=== PATIENT | female | born 1965 | race Caucasian/White ===

== ENCOUNTER 2018-05-16 14:38 | Emergency (ER) | payer OTHER ==
[~2018-05-16] VITALS: Ht 162.6 cm; Wt 79.4 kg
[~2018-05-16 14:38] MED LIST: BACLOFEN10 M1 PO; IBUPROFEN600 M1 PO; ULTRAM50 M1 PO
[2018-05-16 15:28] LABS: ABSOLUTE BASOPHIL COUNT 0 /CUMM (0.0-0.2); ABSOLUTE EOSINOPHIL COUNT 0.1 /CUMM (0.0-0.7); ABSOLUTE GRANULOCYTE CT 2.5 /CUMM (1.4-6.5); ABSOLUTE LYMPH COUNT 1.6 /CUMM (1.2-3.4); ABSOLUTE MONOCYTE COUNT 0.7 /CUMM (0.10-0.60); BASOPHIL % 0.4 % (0.0-2.0); EOSINOPHIL % 2.6 % (0-5); GRANULOCYTE % 50.2 % (42.2-75.2); HEMATOCRIT 40.3 % (37-47); MEAN CORPUSCULAR HGB 30.1 PG (27.0-31.0); MEAN CORPUSCULAR HGB CONC 34.2 G/DL (33.0-37.0); MEAN PLATELET VOLUME 8.2 FL (7.4-10.4); PLATELET COUNT 277 /CUMM (130-400); RBC DISTRIBUTION WIDTH 12.9 % (11.5-14.5); RED BLOOD CELL CT 4.59 /CUMM (4.20-5.40)
--- NOTE | 2018-05-16 16:03 | ED AMS/SEIZURE/WEAK/DIZZY ---
History of Present Illness General Chief Complaint: General Adult Stated Complaint: LIGHTHEADED/WEAKNESS Source: patient Exam Limitations: no limitations Vital Signs & Intake/Output Vital Signs & Intake/Output Vital Signs Date Time Temp Pulse Resp B/P B/P Pulse O2 O2 Flow FiO2 Mean Ox Delivery Rate 05/16 1747 98.1 60 16 164/76 96 Room Air 05/16 1647 98.6 57 20 171/72 98 Room Air 05/16 1640 Room Air 05/16 1453 99.0 62 18 146/86 98 Room Air Allergies Coded Allergies: amoxicillin (Intermediate, RASH 02/24/18) doxycycline (Intermediate, RASH 02/24/18) Reconcile Medications Baclofen 10 MG TABLET 1-2 TAB PO TID PRN muscle strain Ibuprofen 600 MG TABLET 1 TAB PO Q6P PRN pain with food Meclizine HCl 25 MG TABLET 1 TAB PO TIDPRN PRN DIZZY Tramadol HCl (Ultram) 50 MG TABLET 1-2 TAB PO Q6P PRN severe pain Triage Note: 53F REPORTS WEAKNESS AND DIZZINESS SINCE THIS MORNING. +LIGHTHEADEDNESS AND NAUSEA WITHOUT VOMITING OR NEURO DEFICITS. AMBULATES WITH STRONG STEADY GAIT, GENERALLY WELL APPEARING. DENIES CP/SOB/PALP. STATES SHE WAS GOING TO GO TO HER DR BUT DIDN'T HAVE A RIDE. REQUESTING COPIES OF BLOODWORK TO GO HOME WITH Triage Nurses Notes Reviewed? yes Onset: Abrupt Duration: week(s): (1-2 MONTHS), changing over time, continues in ED, intermittent Timing: recent history Injury Environment: home Severity: mild, moderate No Modifying Factors: none LMP (ages 10-50): post menopausal, unknown : No Patient currently breastfeeds: No HPI: 53-year-old female history of hypertension presents for evaluation of episodes of dizziness lightheadedness and weakness. Patient reports she has been noticing the symptoms intermittently over the past 1-2 months. She states that symptoms seem to occur every other day last for several hours then resolve. She reports that she will get dizzy with movement and that her symptoms resolve at rest. She reports associated nausea but no vomiting. She also has had some watery diarrhea without blood INTERMITTENTLY. No abdominal pain chest pain shortness of breath or palpitations. She also reports some generalized weakness without focal weakness. No slurred speech changes in vision head injury. She's not taking any medicine for her symptoms. She's not seen her doctor for this. She does have an appointment on Saturday with her primary. NO recent surgery lower extremity edema or hemoptysis. No cough or fever. NO Rashes. No urinary symptoms. (Anderson Byrd) Past History Travel History Traveled to [place] past 21 day No Medical History Any Pertinent Medical History? see below for history Neurological: NERVE PROBLEMS EENT: NONE Cardiovascular: hypertension Respiratory: NONE Gastrointestinal: NONE Hepatic: NONE Renal: NONE Musculoskeletal: NONE Psychiatric: NONE Endocrine: NONE Blood Disorders: NONE Surgical History Surgical History: non-contributory Psychosocial History What is your primary language Afghan Tobacco Use: Never used ETOH Use: denies use Illicit Drug Use: denies illicit drug use Family History Hx Contributory? No (Anderson Byrd) Review of Systems Review of Systems Constitutional: Reports: weakness. EENTM: Reports: no symptoms. Respiratory: Reports: no symptoms. Cardiovascular: Reports: no symptoms. GI: Reports: see HPI, diarrhea, nausea. Genitourinary: Reports: no symptoms. Musculoskeletal: Reports: no symptoms. Skin: Reports: no symptoms. Neurological/Psychological: Reports: see HPI (dizzy lightheaded). Hematologic/Endocrine: Reports: no symptoms. Immunologic/Allergic: Reports: no symptoms. All Other Systems: Reviewed and Negative (Anderson Byrd) Physical Exam Physical Exam General Appearance: well developed/nourished, no apparent distress, alert, awake Head: atraumatic, normal appearance Eyes: Bilateral: normal appearance, PERRL, EOMI. Ears, Nose, Throat: normal pharynx, normal ENT inspection, hearing grossly normal Neck: normal inspection, supple, full range of motion, no midline tenderness Respiratory: normal breath sounds, chest non-tender, no respiratory distress, lungs clear Cardiovascular: regular rate/rhythm, normal peripheral pulses Peripheral Pulses: 2+ radial (R), 2+ radial (L) Gastrointestinal: soft, non-tender Back: normal inspection, normal range of motion Extremities: normal range of motion Neurologic/Psych: no motor/sensory deficits, awake, alert, oriented x 3, filler spreader II- XII nml as tested, cerebellar testing intact normal Romberg Skin: intact, normal color, warm/dry Lymphatic: no anterior cervical brennon Core Measures ACS in differential dx? No CVA/TIA Diagnosis No Sepsis Present: No Sepsis Focused Exam Completed? No (Anderson Byrd) Progress Differential Diagnosis: arrythmia, anemia, benign positional vertigo, CVA/stroke , dehydration, drug intoxication, electrolyte imbalance, intracranial Hem., intracranial mass/tumor, labrynthitis, meningitis, migraine BANSAL, multiple sclerosis, subarachnoid Hem., UTI/pyelo, vertebrobasilar insuff Plan of Care: Orders Procedure Date/time Status Add-on Test (ER Only) 05/16 153 Active MISTAKE 05/16 153 Active URINALYSIS 05/16 153 Complete TSH REFLEX 05/16 1505 Complete MAGNESIUM 05/16 1505 Complete TROPONIN LEVEL 05/16 1457 Complete COMPREHENSIVE METABOLIC PANEL 05/16 1457 Complete CBC WITHOUT DIFFERENTIAL 05/16 1457 Complete EKG 05/16 1457 Active Laboratory Tests 05/16/18 1700: Urine Color STRAW, Urine Clarity CLEAR, Urine pH 6.0, Ur Specific [place] >= 1.030, Urine Protein NEG, Urine Ketones NEG, Urine Nitrite NEG, Urine Bilirubin NEG, Urine Urobilinogen 0.2, Ur Leukocyte Esterase SMALL H, Ur Microscopic SEDIMENT EXAMINED, Urine RBC RARE, Urine WBC 5-10 H, Ur Epithelial Cells FEW, Urine Bacteria RARE H, Hyaline Casts RARE H, Urine Mucus RARE, Urine Hemoglobin TRACE-INTACT, Urine Glucose NEG 05/16/18 1505: Anion Gap 11, Estimated GFR > 60, BUN/Creatinine Ratio 17.5, Glucose 112 H, Calcium 9.6, Magnesium 1.6, Total Bilirubin 0.3, AST 31, ALT 30, Alkaline Phosphatase 80, Troponin I < 0.01, Total Protein 7.5, Albumin 4.1, Globulin 3.4, Albumin/Globulin Ratio 1.2, TSH &T3 &Free T4 Intrp 1.580, CBC w Diff NO MAN DIFF REQ, RBC 4.59, MCV 88.0, MCH 30.1, MCHC 34.2, RDW 12.9, MPV 8.2, Gran % 50.2, Lymphocytes % 32.4, Monocytes % 14.4 H, Eosinophils % 2.6, Basophils % 0.4, Absolute Granulocytes 2.5, Absolute Lymphocytes 1.6, Absolute Monocytes 0.7 H, Absolute Eosinophils 0.1, Absolute Basophils 0 Patient is here for evaluation of intermittent dizziness and lightheadedness that has been occurring over the past 1-2 months. Patient reports symptoms seem to occur every other day last for several hours and then resolved. The dizziness is present with movement and resolves at rest. She has no chest pain shortness of breath palpitations focal weakness or slurred speech or changes in vision. She is neurologically intact vital signs are stable. Patient is medicated with meclizine labs head CT chest x-ray ordered. Patient is feeling much better after meclizine. She has a steady gait. She denies feeling dizzy at this time. She continues to have no chest pain no shortness of breath. EKG and labs overall are unremarkable. Head CT chest x- ray are negative. Patient will be discharged home with prescription for meclizine. She has an appointment with her primary care doctor this Saturday for follow-up. Discussed return precautions in detail reviewed all results of today's visit patient agrees the plan Initial ED EKG: normal sinus rhythm, no ST T wave changes (Anderson Byrd) Departure Departure Disposition: HOME OR SELF CARE Condition: Stable Clinical Impression Primary Impression: Episode of dizziness Referrals: Shantelle RIVERA,Echo Luther (PCP/Family) Additional Instructions: Rest and drink plenty of fluids. Meclizine as needed for dizziness. Follow-up with your primary care doctor on Saturday as scheduled. Monitor your symptoms return with any concerns Departure Forms: Customer Survey General Discharge Information Prescriptions: Current Visit Scripts Meclizine HCl 1 TAB PO TIDPRN PRN DIZZY #30 TAB (Anderson Byrd) PA/TIME STUDY TECHNOLOGIST Co-Sign Statement Statement: ED Attending supervision documentation- [] I saw and evaluated the patient. I have also reviewed all the pertinent lab results and diagnostic results. I agree with the findings and the plan of care as documented in the PA's/TIME STUDY TECHNOLOGIST's documentation. [X] I have reviewed the ED Record and agree with the PA's/TIME STUDY TECHNOLOGIST's documentation. [] Additions or exceptions (if any) to the PAs/TIME STUDY TECHNOLOGIST's note and plan are summarized below: [] (Chau Esteban DO
--- NOTE | 2018-05-16 16:30 | CT SCAN REPORT ---
EXAMINATION: CT HEAD WITHOUT CONTRAST CLINICAL INFORMATION: Headache, dizziness. COMPARISON: None TECHNIQUE: Contiguous axial imaging was performed from the skull base to vertex without intravenous administration of contrast. DLP: 615 mGy-cm FINDINGS: There is no evidence of acute intracranial hemorrhage or territorial infarction. No abnormal mass effect or midline shift is seen. Dickson to white matter differentiation is well preserved. No extra-axial fluid collections are identified. The ventricles are normal in size. There is no abnormal attenuation within the brain parenchyma. The osseous structures and soft tissues are normal. The mastoid air cells and visualized portions of the paranasal sinuses are well aerated. IMPRESSION: No CT evidence of acute intracranial pathology.
--- NOTE | 2018-05-16 16:33 | RADIOLOGY REPORT ---
EXAMINATION: XR CHEST CLINICAL INFORMATION: Intermittent dizziness and lightheaded. Assess for pneumonia or congestive heart failure. COMPARISON: None. TECHNIQUE: PA and lateral views of the chest were obtained. FINDINGS: The lung block are well expanded and appear clear bilaterally. The cardiac silhouette is normal. The aortic arch is unfolded. There are no pleural effusions or pneumothorax. The central pulmonary vasculature is normal. The hilar regions appear normal. The left first rib is slightly hypoplastic compared to the right. There is irregularity of the posterolateral left ninth rib. There are no acute osseous findings; there are multilevel spondylitic changes in the thoracic spine. IMPRESSION: 1. There are no acute cardiopulmonary findings.
[2018-05-16] MEDS ORDERED: MECLIZINE HCL25 MG PO (17:40)
[2018-05-16 17:47] VITALS: BP 164/76
== END 2018-05-16 17:48 ==
LOC: ERH 14:38
PROVIDERS: Emergency Medicine
DX: R42 Dizziness and giddiness (principal); I10 Essential (primary) hypertension
CPT/HCPCS: 71046; 81001; 93005; 93010